=== PATIENT | female | born 2000 | race African-American/Black ===

== ENCOUNTER 2020-01-15 02:52 | Emergency (ER) | payer OTHER ==
[2020-01-15 03:08] VITALS: BP 105/64
--- NOTE | 2020-01-15 03:13 | ED Physician Documentation ---
PD HPI FEMALE - Stated complaint Stated Complaint: FEMALE - Chief complaint Chief Complaint: Abd Pain - History obtained from History obtained from: Patient - History of Present Illness Timing - onset: How many months ago (1) Timing - duration: Months (1) Timing - details: Gradual onset, Still present, Waxing and waning Associated symptoms: Abdominal pain, Vaginal bleeding Contributing factors: No: Similar symptoms before: Has not had sx before Recently seen: Not recently seen - Additional information Additional information: 19 y/o female has had some pain in the right suprapubic area for the past month without other symptoms and she has had some vaginal bleeding that is irregular and when she awoke this evening to go to the bathroom she noted the vaginal bleeding and her parents asked her to come to the ED. She admits that she has taken some plan B this month. Review of Systems Constitutional: denies: Fever Eyes: denies: Decreased vision Ears: denies: Ear pain Nose: denies: Rhinorrhea / runny nose, Congestion Throat: denies: Sore throat Cardiac: denies: Chest pain / pressure, Palpitations, Pedal edema, Calf pain Respiratory: denies: Dyspnea, Cough GI: reports: Abdominal Pain (suprapubic right side X 1 month). denies: Nausea, Vomiting, Constipation, Diarrhea : reports: Vaginal bleeding, Irregular menses. denies: Dysuria, Frequency Skin: denies: Rash Musculoskeletal: denies: Neck pain, Back pain, Extremity pain Neurologic: denies: Generalized weakness, Focal weakness, Numbness PD PAST MEDICAL HISTORY - Present Medications Home Medications: Ambulatory Orders Medication Instructions Recorded Confirmed No Known Home Medications 01/15/20 01/15/20 - Allergies Allergies/Adverse Reactions: Allergies Allergy/AdvReac Type Severity Reaction Status Date / Time No Known Drug Allergies Allergy Verified 01/15/20 03:08 PD ED PE NORMAL - Vitals Vital signs reviewed: Yes (normal ) - General General: Alert and oriented X 3, No acute distress, Well developed/nourished - HEENT HEENT: Atraumatic, PERRL, EOMI - Neck Neck: Supple, no meningeal sign, No bony TTP - Cardiac Cardiac: RRR, No murmur - Respiratory Respiratory: No respiratory distress, Clear bilaterally - Abdomen Abdomen: Normal bowel sounds, Soft, Non distended, No organomegaly, Other (There is minimal tenderness without garding or rebound tenderness to the suprapubic area on the right without palpable mass. 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, No motor deficit, No sensory deficit, Normal speech Eye Opening: Spontaneous Motor: Obeys Commands Verbal: Oriented GCS Score: 15 - Psych Psych: Normal mood, Normal affect Results - Vitals Vitals: Vital Signs - 24 hr 01/15/20 03:00 Temperature 36.9 C Heart Rate 84 Respiratory 16 Rate Blood Pressure 105/64 O2 Saturation 100 Oxygen O2 Source Room air - Labs Labs: Laboratory Tests 01/15/20 03:22 Urine Color YELLOW Urine Clarity CLEAR Urine pH 6.0 Ur Specific [place] >=1.030 H Urine Protein NEGATIVE Urine Glucose (UA) NEGATIVE Urine Ketones NEGATIVE Urine Occult Blood NEGATIVE Urine Nitrite NEGATIVE Urine Bilirubin NEGATIVE Urine Urobilinogen 0.2 (NORMAL) Ur Leukocyte Esterase NEGATIVE Ur Microscopic Review NOT INDICATED Urine Culture Comments NOT INDICATED Urine HCG, Qual NEGATIVE PD MEDICAL DECISION MAKING - ED course Complexity details: reviewed results, re-evaluated patient, considered differential, d/w patient ED course: 19 y/o female with irregular menses is not and has no evidence of UTI. Her pain present for one month has no specific modifiable factors and has not changed recently indicating an outpatient work up is appropriate. I have asked the patient why she came to the ED at 3am when her symptoms did not seem acute or different and she was only able to tell me that her parents made her come when they found out she was bleeding. She seemed ready to go when I told her she was not . It seems at this juncture any further work up should be done as an outpatient. Departure - Departure Disposition: 01 Home, Self Care Clinical Impression: Irregular menstrual bleeding Condition: Stable Instructions: ED Bleed Irregular Vaginal Follow-Up: [facility] [Provider Group] Comments: If you continue to have irregular bleeding and this pain in the side follow up with [facility].
[2020-01-15 03:40] LABS: BILIRUBIN,URINE NEGATIVE (NEGATIVE); GLUCOSE, URINE (UA) NEGATIVE (NEGATIVE); KETONES,URINE (UA) NEGATIVE (NEGATIVE); LEUKOCYTE ESTERASE, URINE NEGATIVE (NEGATIVE); NITRITE,URINE NEGATIVE (NEGATIVE); OCCULT BLOOD,URINE NEGATIVE (NEGATIVE); PROTEIN,URINE NEGATIVE (NEGATIVE); UROBILINOGEN,URINE 0.2 (NORMAL) E.U./dL (NORMAL)
[2020-01-15 03:43] LABS: CLARITY,URINE CLEAR (CLEAR); HCG UR QUAL NEGATIVE
== END 2020-01-15 04:04 | disposition home or self-care (01) ==
LOC: ED 02:52
DX: N92.6 Irregular menstruation, unspecified (principal)
CPT/HCPCS: 81001; 81003; 81025; 87086; 99283; 99284

== ENCOUNTER 2020-11-15 12:16 | Emergency (ER) | payer OTHER ==
--- NOTE | 2020-11-15 12:36 | ED Physician Documentation ---
PD HPI ABD PAIN - Stated complaint Stated Complaint: L SIDED PAIN - Chief complaint Chief Complaint: Abd Pain - History obtained from History obtained from: Patient - Additional information Additional information: G2, P1 at 10 weeks gestation complains of left upper quadrant and back pain starting today. It is not severe. She is worried about miscarriage. She has had some pelvic cramping but no bleeding or fluid loss. Review of Systems Constitutional: reports: Reviewed and negative Eyes: reports: Reviewed and negative Ears: reports: Reviewed and negative Nose: reports: Reviewed and negative Throat: reports: Reviewed and negative PD PAST MEDICAL HISTORY - Past Surgical History Past Surgical History: No - Present Medications Home Medications: Ambulatory Orders Medication Instructions Recorded Confirmed No Known Home Medications 01/15/20 11/15/20 - Allergies Allergies/Adverse Reactions: Allergies Allergy/AdvReac Type Severity Reaction Status Date / Time No Known Drug Allergies Allergy Verified 11/15/20 12:25 - Social History Does the pt smoke?: No Smoking Status: Never smoker Does the pt drink ETOH?: No Does the pt have substance abuse?: No PD ED PE NORMAL - Vitals Vital signs reviewed: Yes - General General: Alert and oriented X 3, No acute distress - Abdomen Abdomen: Soft, Non tender, Other (Bedside ultrasound shows single live intrauterine with positive heart tones and positive motion) - Neuro Neuro: Alert and oriented X 3, Normal speech Results - Vitals Vitals: Vital Signs - 24 hr 11/15/20 12:18 Temperature 36.1 C L Heart Rate 84 Respiratory 16 Rate Blood Pressure 97/54 L O2 Saturation 100 Oxygen O2 Source Room air - Labs Labs: Laboratory Tests 11/15/20 12:32 Urine Color YELLOW Urine Clarity CLEAR Urine pH 7.5 Ur Specific [place] 1.020 Urine Protein NEGATIVE Urine Glucose (UA) NEGATIVE Urine Ketones NEGATIVE Urine Occult Blood NEGATIVE Urine Nitrite NEGATIVE Urine Bilirubin NEGATIVE Urine Urobilinogen 0.2 (NORMAL) Ur Leukocyte Esterase NEGATIVE Ur Microscopic Review NOT INDICATED Urine Culture Comments NOT INDICATED PD MEDICAL DECISION MAKING - ED course ED course: 19-year-old woman with acute left-sided abdominal pain in , no bleeding or fluid loss. Reassuring bedside ultrasound and negative urinalysis. Return precautions were given. She did not require pain medication. Departure - Departure Disposition: 01 Home, Self Care Clinical Impression: Abdominal pain Qualifiers: Abdominal location: left upper quadrant Qualified Code(s): R10.12 - Left upper quadrant pain Qualifiers: Weeks of gestation: 10 weeks Qualified Code(s): Z3A.10 - 10 weeks gestation of Condition: Good Record reviewed to determine appropriate education?: Yes Instructions: ED Preg Established Normal Sxs Comments: Call your doctor to arrange a follow-up appointment, make the next available appointment. In the interim, return anytime if worse or if new symptoms develop.
[2020-11-15 12:42] LABS: BILIRUBIN,URINE NEGATIVE (NEGATIVE); GLUCOSE, URINE (UA) NEGATIVE (NEGATIVE); KETONES,URINE (UA) NEGATIVE (NEGATIVE); LEUKOCYTE ESTERASE, URINE NEGATIVE (NEGATIVE); NITRITE,URINE NEGATIVE (NEGATIVE); OCCULT BLOOD,URINE NEGATIVE (NEGATIVE); PH,URINE 7.5 PH (5.0-7.5); PROTEIN,URINE NEGATIVE (NEGATIVE); UROBILINOGEN,URINE 0.2 (NORMAL) E.U./dL (NORMAL)
[2020-11-15 12:48] LABS: CLARITY,URINE CLEAR (CLEAR)
[2020-11-15 13:10] VITALS: BP 102/62
== END 2020-11-15 13:10 | disposition home or self-care (01) ==
LOC: ED 12:16
DX: O26.891 Other specified pregnancy related conditions, first trimester (principal); R10.2 Pelvic and perineal pain; Z3A.10 10 weeks gestation of pregnancy
CPT/HCPCS: 81001; 81003; 87086; 99283

== ENCOUNTER 2022-12-15 12:59 | Emergency (ER) | payer MEDICAID, OTHER ==
[2022-12-15 13:28] VITALS: BP 101/64; O2SAT 100
[2022-12-15 13:41] LABS: BILIRUBIN,URINE NEGATIVE (NEGATIVE); CLARITY,URINE CLEAR (CLEAR); GLUCOSE, URINE (UA) 250 mg/dL (NEGATIVE); HCG UR QUAL NEGATIVE; KETONES,URINE (UA) TRACE mg/dL (NEGATIVE); PH,URINE 6.5 PH (5.0-7.5)
[2022-12-15 13:46] LABS: BACTERIA,URINE Few /HPF (None Seen); MUCUS,URINE Few Strands; RBC,URINE 0-5 /HPF (0-5); SQUAMOUS EPITHELIAL CELL,UR MANY Squamous (<= Few)
[2022-12-15] MEDS ORDERED: NITROFURANTOIN MACRO 100 MG CAPSULE PO STA (14:06)
--- NOTE | 2022-12-15 14:19 | ED Physician Documentation ---
PD HPI FEMALE - Stated complaint Stated Complaint: ABD PX,BACK PX - Chief complaint Chief Complaint: UTI - History obtained from History obtained from: Patient - Additional information Additional information: Patient is a 22-year-old female presenting for evaluation of suprapubic discomfort, dysuria, urinary frequency since Friday. She has been using [id number] Azo without any improvement. Denies fever. No flank pain. No vomiting. Denies blood in her urine. Denies abnormal vaginal discharge or concerns for . Review of Systems Constitutional: denies: Fever Cardiac: denies: Chest pain / pressure Respiratory: denies: Dyspnea GI: denies: Vomiting : reports: Dysuria, Frequency. denies: Vaginal bleeding PD PAST MEDICAL HISTORY - Past Medical History Past Medical History: Yes Cardiovascular: None Respiratory: None Neuro: None Endocrine/Autoimmune: None GI: None PULMONARY FELLOW: None : None HEENT: None Psych: None Musculoskeletal: None Derm: None - Past Surgical History Past Surgical History: No - Present Medications Home Medications: Ambulatory Orders Medication Instructions Recorded Confirmed Nitrofurantoin [Macrobid] 1 cap PO BID #10 cap 12/15/22 - Allergies Allergies/Adverse Reactions: Allergies Allergy/AdvReac Type Severity Reaction Status Date / Time No Known Drug Allergies Allergy Verified 12/15/22 13:17 - Social History Does the pt smoke?: No Smoking Status: Never smoker Does the pt drink ETOH?: Yes Does the pt have substance abuse?: No - Immunizations Immunizations are current?: No - POLST Patient has POLST: No PD ED PE NORMAL - General General: Alert and oriented X 3, No acute distress, Well developed/nourished - HEENT HEENT: Atraumatic, Moist mucous membranes, Pharynx benign - Neck Neck: Supple, no meningeal sign - Cardiac Cardiac: RRR, No murmur - Respiratory Respiratory: No respiratory distress, Clear bilaterally - Abdomen Abdomen: Normal bowel sounds, Soft, Non tender, Non distended - Back Back: No CVA TTP Results - Vitals Vitals: Vital Signs - 24 hr 12/15/22 13:17 Temperature 36.9 C Heart Rate 89 Respiratory 16 Rate Blood Pressure 101/64 O2 Saturation 100 Oxygen O2 Source Room air - Labs Labs: Laboratory Tests 12/15/22 13:21 Urine Color ORANGE Urine Clarity CLEAR Urine pH 6.5 Ur Specific [place] 1.010 Urine Protein Urine Glucose (UA) 250 H Urine Ketones TRACE Urine Occult Blood Urine Nitrite Urine Bilirubin NEGATIVE Urine Urobilinogen Ur Leukocyte Esterase Urine RBC 0-5 Urine WBC 6-10 H Ur Squamous Epith Cells MANY Squamous H Urine Bacteria Few Urine Mucus Few Strands Ur Microscopic Review INDICATED Urine Culture Comments NOT INDICATED Urine HCG, Qual NEGATIVE PD Medical Decision Making - ED course Complexity details: reviewed results, re-evaluated patient, d/w patient ED course: Patient with dysuria and frequency for 2 days without improvement using Azo. Her vital signs are stable. Her abdominal exam is benign. Denies vaginal discharge or abnormal vaginal bleeding. Urine analysis is difficult to interpret as patient is on Azo and thus several labs are not able to be interpreted. However there is 6-10 WBC as well as a few bacteria. Given her symptoms and some markers for infection do think it is reasonable to trial a course of antibiotics. Patient is counseled on treatment plan as well as concerning symptoms to return for. Departure - Departure Disposition: 01 Home, Self Care Clinical Impression: Urinary tract infection Condition: Stable Instructions: ED UTI Cystitis Female Prescriptions: Nitrofurantoin [Macrobid] 1 cap PO BID #10 cap Comments: Your urine testing and symptoms today are concerning for urine infection. I am starting on an antibiotic and I have sent this prescription to [facility] in [place]. Please complete the course of the antibiotic. If you have any worsening symptoms such as fever or vomiting please return to the ER. Discharge Date/Time: 12/15/22 14:22
== END 2022-12-15 14:22 | disposition home or self-care (01) ==
LOC: ED 12:59
DX: N39.0 Urinary tract infection, site not specified (principal)
CPT/HCPCS: 81001; 81025; 99282; 99283; A9270; 81003; 87086